=== PATIENT | female | born 1985 | race Caucasian/White ===

== ENCOUNTER 2018-08-06 09:08 | Emergency (ER) | payer BC ==
[2018-08-06] MEDS ORDERED: IBUPROFEN 800 MG TABLET PO ONE (09:55)
--- NOTE | 2018-08-06 09:56 | ER Document Report ---
HPI - HPI Patient complains to provider of: Left foot injury Time Seen by Provider: 08/06/18 09:50 Onset: Yesterday Onset/Duration: Sudden Quality of pain: Achy Pain Level: 4 Context: Patient states she was walking her dog and tripped over a root while wearing slippers outside. Patient complains of persistent left midfoot pain. Associated Symptoms: Other - Left foot pain Exacerbated by: Standing, Movement, Walking Relieved by: Denies Similar symptoms previously: No Recently seen / treated by doctor: No - ROS ROS below otherwise negative: Yes Systems Reviewed and Negative: Yes All other systems reviewed and negative - CONSTITUTIONAL Constitutional: DENIES: Fever - GASTROINTESTINAL Gastrointestinal: DENIES: Nausea - REPRODUCTIVE Reproductive: DENIES: : - MUSCULOSKELETAL Musculoskeletal: REPORTS: Extremity pain, Swelling - DERM Skin Color: Normal Skin Problems: None Past Medical History - General Information source: Patient - Social History Smoking Status: Never Smoker Frequency of alcohol use: None Drug Abuse: None 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 IN LAST 30 DAYS: No - HEENT HEENT: Atraumatic, Normocephalic - NECK Neck: Normal Inspection - RESPIRATORY Respiratory: No Respiratory Distress - CARDIOVASCULAR Pulses: Normal: Dorsalis pedis - MUSCULOSKELETAL/EXTREMETIES Musculoskeletal/Extremeties: MAEW, Tender - Left midfoot tenderness, tenderness over left fifth metatarsal, 1+ edema, Edema. negative: Eccymosis - NEURO Level of Consciousness: Awake, Alert, Appropriate Motor/Sensory: No Motor Deficit - DERM Integumentary: Warm, Dry, No Rash Course - Re-evaluation Re-evalutation: 08/06/18 11:17 Possible Lisfranc fracture and need for more advanced imaging on an outpatient basis. Our underwriting technician states that we do not have the equipment for weightbearing films to be performed. Patient plans to follow-up with emergent Ortho and has already called their office today for an appointment. She advised that she can have complications were she not to follow-up with Ortho for more advanced imaging as well as further evaluation. - Vital Signs Vital signs: Temp Pulse Resp BP Pulse Ox 98.4 F 95 16 120/71 98 08/06/18 09:15 08/06/18 09:15 08/06/18 09:15 08/06/18 09:15 08/06/18 09:15 - Diagnostic Test Radiology reviewed: Image reviewed, Reports reviewed Procedures - Immobilization Left Foot Pre-Proc Neuro Vasc Exam: Normal Immobilizer type: Posterior ankle Performed by: PCT Post-Proc Neuro Vasc Exam: Normal Alignment checked and good: Yes Discharge - Discharge Clinical Impression: Foot fracture, left Qualifiers: Encounter type: initial encounter Fracture type: closed Qualified Code(s): S92.902A - Unspecified fracture of left foot, initial encounter for closed fracture Condition: Stable Disposition: HOME, SELF-CARE Instructions: Acetaminophen, Foot Fracture ([facility]), Ice & Elevation ([facility]), Splint Precautions ([facility]) Additional Instructions: Return immediately for any new or worsening symptoms Followup with your primary care provider, call tomorrow to make a followup appointment No weightbearing to your foot Follow-up with orthopedics for further evaluation, call today for an appoin tment. You will likely need additional imaging whether it be weightbearing films or an MRI of your foot to evaluate for possible Lisfranc fracture but these can be performed on an outpatient basis. Prescriptions: Naproxen [Naprosyn 250 Nmg Tablet] 1 tab PO BID #14 tablet Forms: Return to Work Referrals: [facility] [Provider Group] - Follow up as needed
--- NOTE | 2018-08-06 10:46 | RADIOLOGY REPORT (SQ) ---
EXAM DESCRIPTION: FOOT LEFT COMPLETE COMPLETED DATE/TIME: 08/06/2018 10:24 am REASON FOR STUDY: stepped in hole, L midfoot tenderness COMPARISON: None. NUMBER OF VIEWS: Three views. TECHNIQUE: AP, lateral and oblique radiographic images acquired of the left foot. LIMITATIONS: None. FINDINGS: MINERALIZATION: Normal. BONES: No acute fracture or dislocation. No worrisome bone lesions. JOINTS: No effusions. There is mild widening of the 1st 2nd and 2nd 3rd Lisfranc joints on nonweight bearing views. SOFT TISSUES: No soft tissue swelling. No foreign body. OTHER: No other significant finding. IMPRESSION: No obvious fracture of the left foot. There is mild widening of the 1st 2nd and 2nd 3rd Lisfranc joints on nonweightbearing views. Consider additional weight-bearing views and MRI to more sensitively evaluate integrity of the Lisfranc joints given classic mechanism of injury. There is a risk of chronic degenerative arthropathy with untreated midfoot instability. TECHNICAL DOCUMENTATION: JOB ID: [id number] [employer]- All Rights Reserved Reading location - IP/workstation name: [email or web address]
[2018-08-06 11:52] VITALS: BP 111/64
== END 2018-08-06 11:52 | disposition home or self-care (01) ==
LOC: ER 09:08
DX: S92.902A Unspecified fracture of left foot, initial encounter for closed fracture (principal); M79.672 Pain in left foot; W22.8XXA Striking against or struck by other objects, initial encounter; Y93.K1 Activity, walking an animal
CPT/HCPCS: 99283

== ENCOUNTER 2019-02-20 15:15 | Emergency (ER) | payer OTHER, BC ==
[2019-02-20] MEDS ORDERED: NAPROXEN 250 MG TABLET PO ONE (16:13)
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
--- NOTE | 2019-02-20 17:14 | RADIOLOGY REPORT (SQ) ---
EXAM DESCRIPTION: ELBOW LEFT OVER 2 VIEWS COMPLETED DATE/TIME: 02/20/2019 5:02 pm REASON FOR STUDY: left elbow pain, injury COMPARISON: None. NUMBER OF VIEWS: Four views. TECHNIQUE: AP, lateral, and both oblique radiographic images acquired of the left elbow. LIMITATIONS: None. FINDINGS: MINERALIZATION: Normal. BONES: No acute fracture or dislocation. No worrisome bone lesions. JOINT: No effusion. SOFT TISSUES: No soft tissue swelling. No foreign body. OTHER: No other significant finding. IMPRESSION: NEGATIVE STUDY OF THE LEFT ELBOW. NO RADIOGRAPHIC EVIDENCE OF ACUTE INJURY. TECHNICAL DOCUMENTATION: JOB ID: [id number] SC-[id number] 2010 [employer]- All Rights Reserved Reading location - IP/workstation name: [email or web address]
--- NOTE | 2019-02-20 17:18 | RADIOLOGY REPORT (SQ) ---
EXAM DESCRIPTION: SHOULDER LEFT 2 OR MORE VIEWS COMPLETED DATE/TIME: 02/20/2019 5:02 pm REASON FOR STUDY: left shoulder pain, injury COMPARISON: None. NUMBER OF VIEWS: Three views. TECHNIQUE: Internal rotation, external rotation, and Y view images acquired of the left shoulder. LIMITATIONS: None. FINDINGS: MINERALIZATION: Normal. BONES: No acute fracture or bony abnormality seen. JOINTS: No dislocation. VISUALIZED LUNGS AND RIBS: No pneumothorax. No rib fracture. SOFT TISSUES: No radiopaque foreign body. OTHER: No other significant finding. IMPRESSION: NEGATIVE STUDY OF THE LEFT SHOULDER. NO RADIOGRAPHIC EVIDENCE OF ACUTE INJURY. TECHNICAL DOCUMENTATION: JOB ID: [id number] SC-[id number] 2010 [employer]- All Rights Reserved Reading location - IP/workstation name: [email or web address]
[2019-02-20 17:58] VITALS: BP 121/68
== END 2019-02-20 17:57 | disposition home or self-care (01) ==
LOC: ER 15:15
DX: S50.02XA Contusion of left elbow, initial encounter (principal); S40.012A Contusion of left shoulder, initial encounter; V29.9XXA Motorcycle rider (driver) (passenger) injured in unspecified traffic accident, initial encounter; Z88.6 Allergy status to analgesic agent
CPT/HCPCS: 99283; 73080; 73030; L0120

== ENCOUNTER → 2019-08-19 | Outpatient (CLI) | payer BC ==
--- NOTE | 2019-08-19 12:21 | RADIOLOGY REPORT (SQ) ---
EXAM DESCRIPTION: CHEST PA/LATERAL COMPLETED DATE/TIME: 08/19/2019 11:38 am REASON FOR STUDY: COUGH COMPARISON: None. EXAM PARAMETERS: NUMBER OF VIEWS: two views TECHNIQUE: PA and lateral views of the chest were obtained. RADIATION DOSE: NA LIMITATIONS: none FINDINGS: LUNGS AND PLEURA: No consolidation, pleural effusion or pneumothorax. MEDIASTINUM AND HILAR STRUCTURES: No mediastinal or hilar contour abnormality. HEART AND VASCULAR STRUCTURES: The cardiac silhouette and pulmonary vasculature are within normal blackwell its. BONES: No acute findings. HARDWARE: None in the chest. OTHER: No other finding. IMPRESSION: No acute cardiopulmonary process. TECHNICAL DOCUMENTATION: JOB ID: [id number] [employer]- All Rights Reserved Reading location - IP/workstation name: [email or web address]
== END ==
LOC: OD 11:17
PROVIDERS: ATTEND Nurse Practitioner Family
DX: R05 Cough (principal)
CPT/HCPCS: 71046